=== PATIENT | female | born 1995 ===

== ENCOUNTER 2018-05-12 14:30 | Emergency (ER) | payer SELFPAY ==
[2018-05-12 14:47] VITALS: BMI 30.9
[2018-05-12 15:12] LABS: SQUAMOUS EPITHIAL 8 /hpf (0-5); URINE BACTERIA RARE (<OCC); URINE BILIRUBIN NEGATIVE (NEGATIVE); URINE BLOOD NEGATIVE (NEGATIVE); URINE CALCIUM OXALATE CRYSTALS FEW /hpf (<OCC); URINE CLARITY Hazy (Clear); URINE COLOR Amber (YELLOW); URINE GLUCOSE (UA) NORMAL (Normal); URINE LEUKOCYTE ESTERASE 1+ Leu/uL (Negative); URINE PROTEIN 1+ mg/dL (NEGATIVE)
[2018-05-12] MEDS ORDERED: Lactated Ringer's 500 ML IV ONE (15:52)
[2018-05-12] MEDS ORDERED: Lactated Ringer's 1,000 ML IV SCH (16:00)
--- NOTE | 2018-05-12 16:55 | US ---
Date of service: 05/12/2018 PROCEDURE: Obstetrical ultrasound examination HISTORY: COMPARISON: Not available TECHNIQUE: Transabdominal FINDINGS: Ultrasound examination demonstrates a single live intrauterine gestation in cephalic presentation. The heart rate is 130 beats per minute. A normal quantity of amniotic fluid is visualized. The RIK is 13.04 cm a normal anterior placenta is identified. There is no evidence of placenta previa. The cervix is closed and measures 3 cm in length biometry yields a gestational age of 36 weeks 4 days. The BRITTANY by ultrasound is 06/05/2018. The EFW is 2966 g. Limited review of anatomy demonstrates a normal four-chamber heart. The no abnormality of the spine is evident. There is fluid distending the stomach and urinary bladder. Two normal kidneys are demonstrated without evidence of hydronephrosis. A three-vessel umbilical cord is demonstrated. The anterior abdominal wall is intact. Umbilical arterial duplex Doppler evaluation demonstrates an S/D ratio of 3.0, within normal limits. IMPRESSION: Single live intrauterine gestation of approximately 36 weeks 4 days gestational age. No gross anatomic abnormality. EFW 2966 g anterior placenta. No previa. Normal amniotic fluid volume. Cervix long and closed
--- NOTE | 2018-05-12 17:38 | OBHP ---
Datetime: 05/12/2018 15:47 IP Adm Impression: , intrauterine IP Admit Plan: Discharge home Admit Comment, IP Provider: Subjective- Patient is a 23yo at 36.4wks by US done today ([facility] in [facility]) presents with compl aints of lower abdominal pressure. She describes a constant pressure located at the midline lower abd omen, with no radiation of pain. She states that the pain began at 9am today and remains constant. ra tyrese at a 10/10. She states that she has also noticed nonodorous, nonpurulent nonbloody white discharg e from her vagina starting this morning. Patient also indicates that she has been experiencing increa sed frequency of urination. She indicates that she has felt continuous movement today. She dena es headache, blurry vision, shortness of breath, chest pain, burning on urination, or vaginal bleedin g. Patient lives in the [facility] and 5 days ago came to see her brother in [place]. Matilde york is Khmer speaker and off-site intrepretor Mayra ([id number]) was used to gather history. Social Hx: Denies tobacco, alcohol, illicit drug use. Patient had first menstural period at 10 yea rs old. Cycles are 28 days long, 5 days of menstruation described as heavy. Medical Hx: Denies Allergies: NKA Surgical Hx: Denies Hospitilizations: Denies Family History: C sections in family members Medications: vitamins Objective- see physical above Assessment and Plan: 23 F at 36.4wks r/o PTL - UA negative - s/p IVF hydration- reports improvement in pressure - No care- Appt set up at [facility] on 05/15 at 8:30am - Ultrasound done today BRITTANY: 06/05/18 vertex - vaginal discharge- normal leukorrhea pt asymtomatic PTL precautions discussed -Return to ED for contractions, leakage of fluid, vaginal bleeding or d ecreased movements. Pelvic Type - PN: Not Done Extremities - PN: Normal Abdomen - PN: Normal Back - PN: Normal Breast - PN: Not Done Lungs - PN: Normal Heart - PN: Normal Thyroid - PN: Not Done Neurologic - PN: Normal HEENT - PN: Normal General - PN: Normal FHR - Baseline A Provider: 120 Contraction Comments Provider: irritability Comments, ACOG Physical Exam: Gen: patient non toxic, in no acute distress HEENT: normocephalic, atraumatic. Pulm: Clear to ausculation b/l, no rales no rhonchi no wheezing, no accessory respiratory muscle u se. Cardio: Regular rate rhythm, no mumurs, no gallops no rubs. Gastro: +bowel sounds, non tender, non rigid : speculum exam performed with Dr. Marsh present. Showed scant white discharge, closed cervix, no b lood appreciated. Gestation - Est Wks by US: 36.4 EGA AdmitDate IP: 36.0 Vital Signs Provider: Reviewed; Within Normal Limits IP Chief Complaint: Signs/symptoms UTI; Maternal discomfort NICHD Variability Prov Fetus A: Moderate 6-25bpm NICHD Accel Fetus A IP Provider: 15X15 FHR Category Provider Fetus A: Category I Dilatation, Provider: 0 Effacement, Provider: 0 Station, Provider: -4 Genitourinary Exam: Normal DTRs - PN: Not Done
[2018-05-12 22:27] VITALS: BP 90/72; PULSE 77; TEMP 98.8
== END 2018-05-12 18:20 | disposition home or self-care (01) ==
LOC: C.EROB 14:30
DX: O26.893 Other specified pregnancy related conditions, third trimester (principal); Z3A.36 36 weeks gestation of pregnancy
CPT/HCPCS: 76815; 81001; 99284; J7120

== ENCOUNTER 2018-06-02 11:22 | Outpatient (CLI) | payer OTHER | END 2018-06-02 11:23 | disposition home or self-care (01) | LOC: C.LAB 11:22 | DX: Z20.2 Contact with and (suspected) exposure to infections with a predominantly sexual mode of transmission (principal); Z34.93 Encounter for supervision of normal pregnancy, unspecified, third trimester ==

== ENCOUNTER 2018-06-08 18:55 | Inpatient (IN) | payer SELFPAY ==
[2018-06-08 19:22] VITALS: BMI 29.2
[2018-06-08] MEDS ORDERED: Lactated Ringer's 1,000 ML IV ONE (19:32)
[2018-06-08] MEDS ORDERED: Lactated Ringer's 1,000 ML IV SCH (19:45)
--- NOTE | 2018-06-08 20:10 | OBHP ---
Datetime: 06/08/2018 19:40 IP Adm Impression: Term, intrauterine ; No Active Labor IP Admit Plan: Admit to unit; Initiate labor induction protocol IP Admit Plan Other: Late to care; A1GDM Admit Comment, IP Provider: Patient is Vietnamese-speaking, CORINNA ID [id number] 23 y.o. , LMP unsure, BRITTANY 06/09/18, EGA 39w 6d, per patient, late transfer to care, fo r IOL; A1 GDM.. (+) AFM; denies LOF, VB; (+) B-H Ctx; deneis vaginal pressure. care: [facility] - late care,. A1GDM; (+) chlamydia -treated 05/22/18. 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 Deneis other h/o SIT, abnormal Pap, myomata, ovarian cysts PMH: denies PSH: denies NKDA Meds: PNV - QD Soc Hx: denies toabcco, illicit drug or EtOH use. With FOB x 6 years. Lives with her sister. Unemp loyed Fam Hx: Mother and Father both alive, both 53 y.o.; both, no meds issues. No known fam h/o DM or c ancer P.E.: as above. WD in NAD. Very anxious and nervous. Awake, alert, oriented to time, person and pl mello. Accompanied by FOB and her mother Assessment: 23 y.o. P0, 39w 6d, A1 GDM, late to care for IOL. F.S. values reviewed - evid ence of adequate control. F.S. today: 76/130/115. F.S. on L_D after dinner = 101 mg/dL. Category 1 tr acing. Explained to patient the following: cervical ripening, possible pitcoin, availability of pain medications; possible section, as indicated. Patient expressed an understanding and agrees. Her questions were answered. Patient is cllinically stable. Plan: 1) Admit 2) NPO 3) IVFs 4) Continuous EFM 5) F.S. Q4 hours until actvie labor; then Q 2 hr 6) Cervidil pV x 1 now 7) Anticipate vaginal delivery Pelvic Type - PN: Adequate Extremities - PN: Normal Abdomen - PN: Normal Back - PN: Normal Breast - PN: Normal Lungs - PN: Normal Heart - PN: Normal Thyroid - PN: Not Done Neurologic - PN: Normal HEENT - PN: Normal General - PN: Normal Weight - Estimated: 7lb 8oz Presentation-Admit: Vertex FHR - Baseline A Provider: 145 Contraction Comments Provider: 7-10 minutes Comments, ACOG Physical Exam: Abdomen: Gravid. Soft. Non tender. Fundal height 39cm All other systems reviewed and are negative Gestation - Est Wks by US: 39w 6d IP Hx Assessment: The History has been Reviewed and is Current EGA AdmitDate IP: 39.6 Vital Signs Provider: Reviewed IP Chief Complaint: Scheduled induction of labor NICHD Variability Prov Fetus A: Moderate 6-25bpm NICHD Accel Fetus A IP Provider: 15X15 FHR Category Provider Fetus A: Category I NICHD Decel Fetus A IP Provider: None Dilatation, Provider: 1 Effacement, Provider: 30 Station, Provider: -2 Genitourinary Exam: Normal DTRs - PN: Not Done
--- NOTE | 2018-06-08 20:16 | OBPN ---
Datetime: 06/08/2018 20:13 IP Procedures Other: Cervidil inserted IP Procedures: Sterile Vag Exam IP Progress Plan: Continue present management; Induction; Anticipate Vaginal Delivery FHR - Baseline A Provider: 145 IP Progress Note Comment: Cervidl placed in posterior vaginal vault NICHD Accel Fetus A IP Provider: 15X15 FHR Category Provider Fetus A: Category I NICHD Variability Prov Fetus A: Moderate 6-25bpm NICHD Decel Fetus A IP Provider: None Datetime: 06/08/2018 19:40 Contraction Comments Provider: 7-10 minutes Gestation - Est Wks by US: 39w 6d Weight - Estimated: 7lb 8oz Presentation-Admit: Vertex Vital Signs Provider: Reviewed Dilatation, Provider: 1 Effacement, Provider: 30 Station, Provider: -2
[2018-06-08 20:25] LABS: BASO % 0.3 % (0.0-2.0); EOS # 0.2 K/uL (0.0-0.7); EOS % 2.1 % (0.0-4.0); HEMOGLOBIN 12.9 g/dL (11.0-16.0); LYMPH # 2.4 K/uL (1.0-4.3); LYMPH % 20.3 % (20.0-40.0); MEAN CELL VOLUME 93.8 fL (81.0-99.0); MEAN CORPUSCULAR HEMOGLOBIN 31.6 pg (27.0-31.0); MEAN CORPUSCULAR HGB CONC 33.7 g/dL (33.0-37.0); MEAN PLATELET VOLUME 10.8 fL (7.2-11.7); MONO # 0.8 K/uL (0.0-0.8); MONO % 6.9 % (0.0-10.0); NEUT # 8.2 K/uL (1.8-7.0); NEUT % 70.4 % (50.0-75.0); NRBC % 0.1 % (0.0-2.0); RBC 4.08 Mil/uL (3.80-5.20); RED CELL DISTRIBUTION WIDTH 13.3 % (11.5-14.5); WHITE BLOOD COUNT 11.6 K/uL (4.8-10.8)
[2018-06-08 20:34] LABS: INR 0.9; PROTHROMBIN TIME 10.1 SECONDS (9.7-12.2)
[2018-06-08 20:35] LABS: SQUAMOUS EPITHIAL 16 /hpf (0-5); URINE BACTERIA RARE (<OCC); URINE BILIRUBIN NEGATIVE (NEGATIVE); URINE BLOOD NEGATIVE (NEGATIVE); URINE CLARITY Hazy (Clear); URINE COLOR Yellow (YELLOW); URINE GLUCOSE (UA) NORMAL (Normal); URINE LEUKOCYTE ESTERASE 2+ Leu/uL (Negative); URINE PROTEIN NEGATIVE (NEGATIVE); URINE UROBILINOGEN NORMAL mg/dL (0.2-1.0)
[2018-06-08 20:40] LABS: ALB/GLOB RATIO 1.4 (1.0-2.1); ALBUMIN 4.2 g/dL (3.5-5.0); ALT/SGPT 15 U/L (9-52); AST/SGOT 26 U/L (14-36); BLOOD UREA NITROGEN 8 mg/dL (7-17); CALCIUM 9.8 mg/dl (8.6-10.4); GFR NON-AFRICAN AMERICAN > 60; URIC ACID 4.9 mg/dL (2.2-7.5)
[2018-06-08] MEDS ORDERED: Nalbuphine HCL 10 mg/ml Ampule IVP PRN (20:56)
[2018-06-08] MEDS ORDERED: DiphenhydrAMINE 50 mg/ml Inj IVP PRN (20:57)
[2018-06-08] MEDS ORDERED: Dextrose 5%/Lactated Ringer's 1,000 ML IV SCH (21:00)
[2018-06-09] MEDS ORDERED: Oxytocin 30 UNIT 30 UNITS/500 ML BAG IV SCH (08:45)
--- NOTE | 2018-06-09 08:45 | OBPN ---
Datetime: 06/09/2018 08:36 IP Progress Impression: Normal progression of labor IP Procedures: Sterile Vag Exam IP Progress Plan: Induction FHR - Baseline A Provider: 130 IP Progress Note Comment: A/P: 23yo at 40wks - IOL GDMA1 1) VSS; Bps 110*-130/70s - no s/s PEC - PIH labs WNL 2) IOL - s/p cervidil x 1 for second cervidil 3) GDMA1 - FS: 75 continue q4 fingersticks then q2 when active 4) Continue present management Vital Signs Provider: Reviewed; Within Normal Limits NICHD Accel Fetus A IP Provider: 15X15 FHR Category Provider Fetus A: Category I NICHD Variability Prov Fetus A: Moderate 6-25bpm Dilatation, Provider: 1 Effacement, Provider: 0 Station, Provider: -3 NICHD Decel Fetus A IP Provider: None
--- NOTE | 2018-06-09 10:47 | OBPN ---
Datetime: 06/09/2018 10:43 IP Procedures: Sterile Vag Exam IP Progress Plan: Induction FHR - Baseline A Provider: 140 IP Progress Note Comment: A/P: at 40wks - IOL GDMA1 VSS Cervidil #2 placed Continue to monitor NICHD Accel Fetus A IP Provider: 15X15 FHR Category Provider Fetus A: Category I NICHD Variability Prov Fetus A: Moderate 6-25bpm Dilatation, Provider: 1 Effacement, Provider: 0 Station, Provider: -3 NICHD Decel Fetus A IP Provider: None
[2018-06-09] MEDS ORDERED: Dextrose 5%/Lactated Ringer's 1,000 ML IV SCH (13:30)
--- NOTE | 2018-06-09 15:19 | OBPN ---
Datetime: 06/09/2018 15:11 IP Progress Plan: Continue present management Membranes, Provider: Intact FHR - Baseline A Provider: 135 IP Progress Note Comment: A/P: 23yo at 40wks - IOL GDMA1 1) VSS 2) Cervidil in place since 10am 3) GDM - last FS 60 for D5 1/2 NS 4) Continue present management Vital Signs Provider: Reviewed; Within Normal Limits NICHD Accel Fetus A IP Provider: 15X15 FHR Category Provider Fetus A: Category I NICHD Variability Prov Fetus A: Moderate 6-25bpm NICHD Decel Fetus A IP Provider: None
[2018-06-09] MEDS ORDERED: Nalbuphine HCL 10 mg/ml Ampule ONE (17:40)
--- NOTE | 2018-06-09 20:07 | OBPN ---
Datetime: 06/09/2018 19:59 IP Progress Plan: Induction Membranes, Provider: Ruptured FHR - Baseline A Provider: 130 IP Progress Note Comment: A/P: at 40wks - IOL GDMA1 VSS Cervidil in place SROM 7:30am Nubain IVP x 1 dose given for pain management - pt for epidural Continue current management Vital Signs Provider: Reviewed; Within Normal Limits FHR Category Provider Fetus A: Category I NICHD Variability Prov Fetus A: Moderate 6-25bpm NICHD Decel Fetus A IP Provider: None
[2018-06-09] MEDS ORDERED: Fentanyl/Bupivacaine HCl 250 ML EPI ONE (20:49)
--- NOTE | 2018-06-09 23:31 | OBPN ---
Datetime: 06/09/2018 23:28 IP Procedures: Sterile Speculum Exam IP Progress Plan: Induction Membranes, Provider: Ruptured FHR - Baseline A Provider: 120 IP Progress Note Comment: A/P: 24yo at 40 weeks - IOL GDMA1 1) VSS 2) Cervidil removed- for pitocin 3) pain management- Dr. Robertson at bedside, epidural to be replaced 4) continue to monitor NICHD Accel Fetus A IP Provider: 15X15 FHR Category Provider Fetus A: Category I NICHD Variability Prov Fetus A: Moderate 6-25bpm Dilatation, Provider: 2 Effacement, Provider: 80 Station, Provider: -2
[2018-06-10] MEDS ORDERED: Oxytocin 20 units in LR 0 ML IV ONE (05:12)
[2018-06-10] MEDS ORDERED: Oxytocin 20 units in LR 2,000 ML IV ONE (07:42)
[2018-06-10] MEDS ORDERED: Lidocaine 2% MPF (5 ml) Inj ONE ×2 (07:43→07:47)
--- NOTE | 2018-06-10 09:30 | OBDS ---
DELIVERY PERSONNEL Delivery Doctor: Katya Gonzalez DO Extractor Machine Operator: Bethanie Ramey RN Anesthesiologist: MD Delio MATERNAL INFORMATION Delivery Anesthesia: Epidural Medications in Delivery: Cytotec 1000 mcg [place], Pitocin 20 units in 1000mls of LR Estimated Blood Loss (ml): 600 Placenta Cultured: No Maternal Complications: Hemorrhage RN Comments: uneventful delivery of 40.1 wks IPU via to a viable baby girl with 9-9 apgars Provider Comments: Pt fully dilated and pushing. RML performed- head delivered CASSIUS, no nuchal cord. Shoulders and body delivered without difficulty. Mouth and nose suctioned. Cord clamped and cut. Cord segment collected. Placenta delivered intact-spontaneous. RML repaired as above. Uterine atony noted . Bimanual massage performed and bladder drained. Pitocin IV, hemabate and cytotec [place] given. Hemosta sis achieved. EBL: 600c viable female infant apgars 9/9 LABOR SUMMARY EDC: 06/09/2018 00:00 No. Babies in Womb: 1 Attempted: No Labor Anesthesia: Epidural LABOR INFORMATION Reason for Induction: Maternal Diabetes Cervical Ripening Agents: Cervidil (Annotations: cervidil removed) Oxytocin: N/A Group B Beta Strep: Negative Steroids Given: None Reason Steroids Not Administered: Not Applicable MEMBRANES Membranes Rupture Method: Spontaneous Rupture of Membranes: 06/09/2018 19:20 Amniotic Fluid Color: Clear Amniotic Fluid Amount: Moderate Amniotic Fluid Odor: Normal VAGINAL DELIVERY Episiotomy: Right Mediolateral Laceration Extension: N/A Laceration Type: None Laceration Repair Note: Right mediolateral episiotomy performed- no extension. Repaired with 2-0 chr omic with good hemostasis. Initial Vag Sponge Count: 10 Final Vag Sponge Count: 10 Initial Vag Sharps Count: 0 Final Vag Sharps Count: 4 Sponge Count Correct: Yes Sharps Count Correct: Yes Count Comment: count performed by withnessed by RN to be correct BABY A INFORMATION Method of Delivery: Vaginal Born in Route : No : N/A Forceps: N/A Vacuum Extraction: N/A Shoulder Dystocia : No PRESENTATION/POSITION BABY A Presentation: Cephalic Cephalic Presentation: Vertex Vertex Position: Left Occipital Anterior Breech Presentation: N/A INFANT INFORMATION BABY A Gestational Age at Delivery: 40.1 Gestational Status: Post-term Outcome : Liveborn Infant Condition : Stable Infant Sex: Female IDENTIFICATION/MEDS BABY A ID Band Number: [id number] ID Band Location: Left Leg; Left Arm Sensor Applied: Yes Sensor Number: [id number] Sensor Location : Cord Clamp CORD INFORMATION BABY A No. Cord Vessels: 3 Nuchal Cord : N/A
[2018-06-10] MEDS ORDERED: Phytonadione 1 mg/0.5 ml Inj (Neonatal) ONE (09:36)
[2018-06-10] MEDS ORDERED: Erythromycin 0.5% Ophth Oint 1 APPLIC/3.5 G ONE (09:36)
[2018-06-10] MEDS ORDERED: Benzocaine/Menthol 20%-0.5% Topical Spray (60 ml) TOP PRN (14:52)
--- NOTE | 2018-06-11 08:56 | OBPPN ---
Datetime: 06/11/2018 08:55 PP Pain Prov: Within normal limits PP Lochia Prov: Normal PP Impression Prov: Normal progression PP Plan Prov: Continue present management PP Progress Note Prov: a/p: s/p PPD#1 - stable, afebrile - + breast/bottle - no issues - continue pp mgmt IP PP Procedures: None Vital Signs Provider PP: Reviewed; Within Normal Limits
[2018-06-11] MEDS: Multiple Vitamins Tab PO SCH (09:15)
[2018-06-11 09:33] LABS: BASO # 0.1 K/uL (0.0-0.2); BASO % 0.4 % (0.0-2.0); EOS # 0.2 K/uL (0.0-0.7); EOS % 1.1 % (0.0-4.0); LYMPH # 2.7 K/uL (1.0-4.3); LYMPH % 18.4 % (20.0-40.0); MEAN CELL VOLUME 94.8 fL (81.0-99.0); MEAN CORPUSCULAR HEMOGLOBIN 31.8 pg (27.0-31.0); MEAN CORPUSCULAR HGB CONC 33.6 g/dL (33.0-37.0); MEAN PLATELET VOLUME 10.1 fL (7.2-11.7); MONO # 0.8 K/uL (0.0-0.8); MONO % 5.4 % (0.0-10.0); NEUT # 10.9 K/uL (1.8-7.0); NEUT % 74.7 % (50.0-75.0); RBC 2.6 Mil/uL (3.80-5.20); RED CELL DISTRIBUTION WIDTH 13.2 % (11.5-14.5); WHITE BLOOD COUNT 14.5 K/uL (4.8-10.8)
[2018-06-11 09:35] LABS: HEMOGLOBIN 8.3 g/dL (11.0-16.0)
--- NOTE | 2018-06-12 09:57 | OBDCSUM ---
Datetime: 06/12/2018 09:55 Discharged to, Provider: Home Follow up at, Provider: 6we Disch Instr Activity: Normal activity Disch Instr Diet: Regular Discharge Diagnosis, Provider: Term Delivered Follow up in weeks, Provider: clinic Disch Activity Restrictions: Minimize walking; Minimize stair-climbing; No sexual activity; Nothing in vagina - [place], tampons, douche Discharge Comment, Provider: no sex motrimn prn f/u
--- NOTE | 2018-06-12 09:57 | OBPPN ---
Datetime: 06/12/2018 07:48 PP Pain Prov: Within normal limits PP Nausea Prov: Denies PP Flatus Prov: No PP BM Prov: No PP Heart Prov: Normal PP Lungs Prov: Normal PP Abdomen/Uterus Prov: Normal PP Lochia Prov: Normal PP Progress Prov: Normal PP Impression Prov: Normal progression PP Plan Prov: Continue present management; Discharge PP Progress Note Prov: Subjective: Patient seen and examined at bedside. Per nursing no acute events overnight. Patient is doing well , and currently has no chief complaints. She denies any pain. She states she is able to walk, move ar ound and tolerating diet. She has lochia, and goes through about 3 pads a day. She denies any nausea, vomiting, or gas. She is voiding normally. She feeds the baby about every 3 hours a day. She uses br east feeding and formula to feed baby. Objective: Vitals- see above. Gen Appearance- in no acute distress. AAO x3. Heart- RRR Lungs- CTA bilaterally Abdomen- bowel sounds slightly hyperactive on RLQ Fundal Height- 1 finger breadth below umbilicus Extremities- no clubbing, cyanosis, edema; no calf tenderness Labs: Hemoglobin- 8.3 Hct- 24.7 WBC- 14.5 Platelets- 183 Assessment: Patient is a 23 year old s/p with RML episiotomy post day 2 Plan: -Stable, afebrile -Pain control: Motrin as needed -Anemia: continue iron supplementation -Encourage ambulation, hydration, and -Patient is cleared for discharge home: pelvic rest x 6 weeks, f/u with clinic in 6 weeks for post visit -Plan discussed with Dr Triston Patterson, EMRE III/ Nadiya Kowalski DO PGY-2 Vital Signs Provider PP: Reviewed; Within Normal Limits
[2018-06-12] MEDS: Multiple Vitamins Tab PO SCH (10:55)
[2018-06-12] MEDS ORDERED: Influenza Vaccine 60 mcg/0.5 mL SYR (4YR UP) IM ONE (13:10)
[2018-06-12 20:37] VITALS: BP 101/64; PULSE 75; RESP 18; TEMP 98.4; O2SAT 98
== END 2018-06-12 15:00 | disposition home or self-care (01) | DRG 807 ==
LOC: C.EROB 18:55 → C.4D 19:32 → C.4M 06-10 14:11
PROVIDERS: ADMIT Obstetrics & Gynecology; ATTEND Obstetrics & Gynecology
PROC: 3E0P7VZ Introduction of Hormone into Female Reproductive, Via Natural or Artificial Opening (ICD-10-PCS; 2018-06-08)
PROC: 10E0XZZ Delivery of Products of Conception, External Approach (ICD-10-PCS; principal; 2018-06-09)
PROC: 0W8NXZZ Division of Female Perineum, External Approach (ICD-10-PCS; 2018-06-09)
DX: O24.420 Gestational diabetes mellitus in childbirth, diet controlled (principal); Z37.0 Single live birth; O62.2 Other uterine inertia; Z3A.40 40 weeks gestation of pregnancy